=== PATIENT | female | born 2000 | race Caucasian/White ===

== ENCOUNTER 2025-09-18 05:30 | Inpatient (IN) | payer OTHER ==
[2025-09-18 06:09] VITALS: BMI 28.9
[2025-09-18] MEDS ORDERED: Methylergonovine 0.2 MG/ML VIAL IM PRN (07:02)
[2025-09-18] MEDS ORDERED: Famotidine/PF 20 mg/2ml Vial SLOW IVP PRN (07:02)
[2025-09-18] MEDS ORDERED: hydrALAZINE 20 MG/ML VIAL SLOW IVP PRN ×2 (07:02→11:55)
[2025-09-18] MEDS ORDERED: Bicitra 30 ML UDCUP PO PRN (07:02)
[2025-09-18] MEDS ORDERED: Diphenoxylate HCl/Atropine Tablet PO PRN (07:02)
[2025-09-18] MEDS ORDERED: Tranexamic Acid 1,000 MG/10 ML VIAL IVP PRN (07:02)
[2025-09-18] MEDS ORDERED: Carboprost 250 MCG/ML AMP IM PRN (07:02)
[2025-09-18] MEDS ORDERED: Oxytocin 30 units/NS 500 ML 500 ML IV SCH (07:02)
[2025-09-18] MEDS ORDERED: Ondansetron PF 4 MG/2 ML Vial IVP PRN ×4 (07:02→11:55)
[2025-09-18 07:10] LABS: Hematocrit 34.1 % (34.9-44.5); Hemoglobin 11.9 g/dL (12.0-15.5); Mean Corpuscular Hemoglobin 30.5 pg (27.0-33.0); Mean Corpuscular Volume 87.4 fL (81.6-98.3); Platelet Count 147 10x3/uL (150-450); Red Blood Cell (RBC) Count 3.90 10x6/uL (3.90-5.03); White Blood Cell (WBC) Count 11.16 10x3/uL (3.5-10.5)
[2025-09-18 07:40] LABS: Hep B Surf Ag - L&D Non-Reactive S/CO (NonReactive)
[2025-09-18 07:45] LABS: Syphilis Antibody Index 0.03 S/CO (<1.00 Non-Reactive)
[2025-09-18] MEDS ORDERED: Ketorolac Tromethamine 30 MG (1 mL) VIAL IVP PRN (08:42)
[2025-09-18] MEDS ORDERED: Communication Order-Pharmacy FS SCH (08:45)
[2025-09-18] MEDS: Ketorolac Tromethamine 30 MG (1 mL) VIAL IVP SCH ×2 (09:21→14:44)
[2025-09-18] MEDS: Meperidine HCl/PF 25 MG (1 mL) VIAL SLOW IVP PRN (09:54)
[2025-09-18] MEDS: diphenhydrAMINE 50 MG/ML VIAL IVP PRN (11:25)
[2025-09-18] MEDS ORDERED: diphenhydrAMINE 25 MG CAP PO PRN (11:55)
[2025-09-18] MEDS ORDERED: Lanolin Ointment 7 GM TUBE TOP PRN (11:55)
[2025-09-18] MEDS: Oxytocin 10 UNITS/ML VIAL ONE (11:57)
[2025-09-18] MEDS: CEFAZOLIN 2 GM VIAL ONE (11:57)
[2025-09-18] MEDS: PHENYLEPHRINE-NS 100 MCG/ML 10 ML SYRINGE ONE (11:57)
[2025-09-18] MEDS: Dexamethasone 10 MG/ML VIAL ONE (11:57)
[2025-09-18] MEDS: Ferrous Sulfate 325 MG TAB PO SCH (12:22)
[2025-09-18] MEDS ORDERED: Meperidine HCl/PF 25 MG (1 mL) VIAL IM PRN (20:46)
[2025-09-19 04:06] LABS: Hematocrit 29.4 % (34.9-44.5); Hemoglobin 9.8 g/dL (12.0-15.5); Mean Corpuscular Hemoglobin 29.5 pg (27.0-33.0); Mean Corpuscular Volume 88.6 fL (81.6-98.3); Platelet Count 147 10x3/uL (150-450); Red Blood Cell (RBC) Count 3.32 10x6/uL (3.90-5.03); White Blood Cell (WBC) Count 13.49 10x3/uL (3.5-10.5)
[2025-09-19] MEDS: HYDROcodone/Acetaminophen 5/325 mg Tablet PO PRN ×2 (06:04→09:38)
[2025-09-19] MEDS: Simethicone Chewable 80 MG TAB PO PRN (06:08)
[2025-09-19] MEDS: Ferrous Sulfate 325 MG TAB PO SCH (09:45)
[2025-09-19] MEDS: Ibuprofen 800 MG TAB PO SCH (16:25)
[2025-09-20 08:29] VITALS: BP 116/63; TEMP 98
[2025-09-20] MEDS: Bisacodyl 10 MG SUPP PR PRN (10:43)
[2025-09-20] MEDS: Milk Of Magnesia 30 ML UDCUP PO SCH (14:44)
== END 2025-09-20 16:15 | disposition home or self-care (01) | DRG 788 ==
LOC: CSHLD 05:30 → CSHPP 11:06
PROVIDERS: ADMIT Family Medicine; ATTEND Family Medicine
PROC: 10D00Z1 Extraction of Products of Conception, Low, Open Approach (ICD-10-PCS; principal; 2025-09-18)
DX: O34.211 Maternal care for low transverse scar from previous cesarean delivery (principal); Z3A.39 39 weeks gestation of pregnancy
CPT/HCPCS: 36415; 51702; 85027; 86780; 86850; 86900; 86901; 87340; J1100; J1200; J1885; J2175; J2250; J2274; J2590

== ENCOUNTER 2025-09-20 21:43 | Emergency (ER) | payer OTHER ==
[2025-09-20] MEDS ORDERED: Bacitracin 1 PK ONE (22:28)
[2025-09-20 22:42] LABS: #Basophils Less than 0.03 10x3/uL (0.0-0.2); #Eosinophils 0.14 10x3/uL (0.0-0.5); #Monocytes 0.60 10x3/uL (0.0-1.1); #Neutrophils 9.52 10x3/uL (1.5-8.4); %Basophils 0.1 % (0.0-2.0); %Eosinophils 1.3 % (0.0-6.0); %Lymphocytes 4.4 % (18.0-47.0); %Monocytes 5.5 % (0.0-10.0); %Neutrophils 87.9 % (40.0-75.0); Hematocrit 30.6 % (34.9-44.5); Hemoglobin 10.6 g/dL (12.0-15.5); Mean Corpuscular Hemoglobin 30.3 pg (27.0-33.0); Mean Corpuscular Volume 87.4 fL (81.6-98.3); Platelet Count 148 10x3/uL (150-450); Red Blood Cell (RBC) Count 3.50 10x6/uL (3.90-5.03); White Blood Cell (WBC) Count 10.84 10x3/uL (3.5-10.5)
[2025-09-20 22:43] LABS: Glucose, Urine (Dipstick) Normal (Negative); Leukocyte Negative (Negative); Protein, Urine (Dipstick) Negative (Neg-Trace); Specific Gravity, Urine 1.015 (1.005-1.030)
[2025-09-20] MEDS ORDERED: Ibuprofen 200 MG TAB ONE (22:54)
[2025-09-20 22:59] LABS: ALT (SGPT) 11 U/L (Less than 34); AST (SGOT) 24 U/L (11-34); Albumin 2.6 g/dL (3.1-4.5); Alkaline Phosphatase 88 U/L (40-110); Anion Gap 13 mmol/L (10-20); BUN (Urea Nitrogen) 14 mg/dL (7.0-18.7); Bilirubin, Total 0.3 mg/dL (0.3-1.2); Calc. Creatinine Clearance 0 mL/min (70-130); Calcium 7.9 mg/dL (7.8-10.44); Carbon Dioxide 21 mmol/L (22-29); Chloride 105 mmol/L (98-107); Globulin 3.1 g/dL (2.4-3.5); Glucose 100 mg/dL (70-105); Potassium 3.7 mmol/L (3.5-5.1); Sodium 135 mmol/L (136-145)
[2025-09-20 23:03] LABS: Troponin I Less than 0.010 ng/mL (< 0.028)
[2025-09-20 23:23] LABS: CAUTI Indications for Culture Fever or rigors; RBC/HPF 0-3 HPF (0-3); WBC/HPF 0-3 HPF (0-3)
[2025-09-20 23:24] LABS: Bacteria/HPF Rare-Few HPF (None Seen)
[2025-09-20 23:25] LABS: Urine Culture Reflex No No
[2025-09-20 23:48] LABS: Actual Bicarbonate (HCO3v) 23.7 mEq/L (22-28); Analyzer IN Cardio CS ER; Base Excess 0.2 mEq/L (-2 - +2); Calcium, Ionized (venous) 1.07 mmol/L (1.16-1.32); Chloride (VBG) 103 mmol/L (98-106); Hematocrit-VBG 35 % (36.0-47.0); Hemoglobin (Hb) 11.9 g/dL (11.7-15.5); Potassium (VBG) 4.06 mmol/L (3.70-5.30); Puncture Site Other Site; RapidComm Collect By Lab; Sodium 133 mmol/L (133-146)
[2025-09-21] MEDS ORDERED: HYDROcodone/Acetaminophen 5/325 mg Tablet ONE (00:10)
== END 2025-09-21 00:38 | disposition home or self-care (01) ==
LOC: CSHERS 21:43
DX: O99.891 Other specified diseases and conditions complicating pregnancy (principal); G89.18 Other acute postprocedural pain; O99.285 Endocrine, nutritional and metabolic diseases complicating the puerperium; E86.0 Dehydration; O90.81 Anemia of the puerperium; O99.335 Smoking (tobacco) complicating the puerperium; F17.290 Nicotine dependence, other tobacco product, uncomplicated; Z79.899 Other long term (current) drug therapy
CPT/HCPCS: 36415; 71275; 74177; 80053; 81001; 82805; 83605; 83880; 84484; 85025; 87040; 87086; 87428; 93005; 94760; 96361; 96374; J2270